=== PATIENT | female | born 1955 | race Caucasian/White ===

== ENCOUNTER 2021-04-26 18:35 | Emergency (ER) | payer MEDICARE ==
[~2021-04-26] VITALS: Ht 157.5 cm; Wt 65.8 kg
[2021-04-26] MEDS ORDERED: LEVOTHYROXINE112 MC1 PO (20:29)
[2021-04-26] MEDS ORDERED: ASPIRIN81 MG PO (20:29)
[2021-04-26] MEDS ORDERED: NORVASC5 MG PO (20:29)
[2021-04-26] MEDS ORDERED: LOVASTATIN10 MG PO (20:30)
[2021-04-26] MEDS ORDERED: ZETIA10 MG PO (20:30)
[2021-04-26] MEDS ORDERED: OMEPRAZOLE20 MG PO (20:30)
[2021-04-26] MEDS ORDERED: ESTRACE1 MG PO (20:30)
[2021-04-26] MEDS ORDERED: VITAMIN D325 MC2 PO (20:31)
[2021-04-26] MEDS ORDERED: FLAX OIL1000 MG PO (20:32)
[2021-04-26] MEDS ORDERED: NITROSTAT0.4 MG SL (20:33)
[2021-04-26] MEDS ORDERED: ATIVAN0.5 MG PO (20:33)
[2021-04-26] MEDS ORDERED: PERCOCET 5-3251 EACH PO (20:34)
[2021-04-26] MEDS ORDERED: FUROSEMIDE20 MG PO (20:34)
== END 2021-04-26 23:45 | disposition home or self-care (01) ==
LOC: ED 18:35
DX: U07.1 COVID-19 (principal); Z88.5 Allergy status to narcotic agent; Z88.7 Allergy status to serum and vaccine; Z88.8 Allergy status to other drugs, medicaments and biological substances; Z79.82 Long term (current) use of aspirin; Z79.899 Other long term (current) drug therapy
CPT/HCPCS: 99283-25; C9803; M0243; Q0244; U0003